=== PATIENT | female | born 1995 | race Two or more races ===

== ENCOUNTER 2017-08-08 08:43 | Inpatient (IN) | payer OTHER ==
[2017-08-08 09:40] LABS: Urine Bilirubin Negative (Negative); Urine Glucose Negative (Negative); Urine Nitrite Negative (Negative)
[2017-08-08 09:51] LABS: Hematocrit 38 % (35-47); Hemoglobin 12.8 g/dl (12.0-16.0); Mean Corpuscular HGB Conc 34 g/dl (31-36); Mean Corpuscular Hemoglobin 28 pg (27-31); Mean Corpuscular Volume 83 fL (80-97); Mean Platelet Volume 9 um3 (7.4-10.4); Red Blood Count 4.53 10^6/ul (4.0-5.4); Red Cell Distribution Width 13 % (10.5-15); White Blood Count 8.9 10^3/ul (3.5-10.8)
[2017-08-08 09:57] LABS: Benzodiazepine Urine Screen None Detected (None Detect)
[2017-08-08 10:08] LABS: ALT 9 U/L (7-52); AST 14 U/L (13-39); Albumin 4.1 g/dL (3.2-5.2); Alkaline Phosphatase 44 U/L (34-104); Anion Gap 7 mmol/L (2-11); BUN/Creatinine Ratio 10.3 (8-20); Blood Urea Nitrogen 7 mg/dL (6-24); CO2 Carbon Dioxide 25 mmol/L (22-32); Calcium 9.5 mg/dL (8.6-10.3); Chloride 107 mmol/L (101-111); EGFR African American 140.5 (>60); EGFR Non-African American 109.2 (>60); Globulin 2.6 g/dL (2-4); Glucose 98 mg/dL (70-100); Potassium 3.7 mmol/L (3.5-5.0); Sodium 139 mmol/L (133-145); Total Protein 6.7 g/dL (6.4-8.9)
[2017-08-08 10:41] LABS: Acetaminophen < 15 mcg/mL; Alcohol < 10 mg/dL (<10); Salicylate < 2.50 mg/dL (<30)
[2017-08-08] MEDS ORDERED: Al Hydrox/Mg Hydrox/Simet LIQ* 30 ML UDC PO PRN (12:31)
[2017-08-08] MEDS ORDERED: Acetaminophen TAB* 325 MG PO PRN (12:31)
[2017-08-08] MEDS ORDERED: LORazepam TAB(*) 1 MG PO PRN (12:32)
--- NOTE | 2017-08-08 19:02 | ED ---
Mathew Ott Angela, scribed for Paulo Jimenes MD on 08/08/17 at 0917 . Psychiatric Complaint - HPI Summary HPI Summary: This pt is a 21 y/o female presenting to [facility] c/o nausea, anxiety, and SI x1 week. Pt reports she is under a lot of stress. She is in her first year of college. Pt notes she is currently on fall break and has not had class since 5 days ago, which has made her anxiety worse. Pt states that she has had decreased appetite and has lost weight. She reports it is hard to concentrate and cries frequently. Pt additionally states having constipation for the last few days but today she has had diarrhea. Pt denies HI. Pt saw a counselor at [facility] and was told the psychiatrist does not have an opening until August. She has seen a counselor before in [facility] but was not diagnosed with clinical depression. Upon waking up today, the pt notes she felt very anxious and scared so she called her psychiatrist in [facility]. She was told to come to the ED for an emergency visit. Pt denies tobacco, drug, and alcohol use. - History Of Current Complaint Chief Complaint: EDMentalHealth Time Seen by Provider: 08/08/17 09:01 Hx Obtained From: Patient Onset/Duration: Lasting Days Timing: Days Character: Depressed, Fearful, Anxious Aggravating Factor(s): Recent Stress Alleviating Factor(s): Nothing Has Suicidal: Reports: Thoughts Has Homicidal: Denies: Thoughts, With A Plan - Allergies/Home Medications Allergies/Adverse Reactions: Allergies Allergy/AdvReac Type Severity Reaction Status Date / Time No Known Allergies Allergy Verified 08/08/17 08:51 Home Medications: Home Medications NK [No Home Medications Reported] 08/08/17 [History Confirmed 08/08/17] PMH/Surg Hx/FS Hx/Imm Hx Endocrine/Hematology History: Denies: Hx Diabetes Cardiovascular History: Denies: Hx Hypertension Infectious Disease History: No Infectious Disease History: Denies: Traveled Outside the [place] in Last 30 Days - Family History Known Family History: Negative: Cardiac Disease, Hypertension, Diabetes - Social History Occupation: Student - [employer] Alcohol Use: None Hx Substance Use: No Substance Use Type: Reports: None Hx Tobacco Use: No Smoking Status (MU): Never Smoked Tobacco Review of Systems Positive: Other - decreased appetite, losing weight. Negative: Fever, Chills Eyes: Negative ENT: Negative Positive: Diarrhea, Nausea, Other - constipation, now resolved. Negative: Vomiting Skin: Negative Psychological: Other - SI, unable to concentrate Positive: Anxious. Negative: Other - HI All Other Systems Reviewed And Are Negative: Yes Physical Exam - Summary Physical Exam Summary: VITAL SIGNS: Reviewed. GENERAL: Patient is a well-developed and nourished female who is lying comfortable in the stretcher. Patient is not in any acute respiratory distress. HEAD AND FACE: No signs of trauma. No ecchymosis, hematomas or skull depressions. No sinus tenderness. EYES: PERRLA, EOMI x 2, No injected conjunctiva, no nystagmus. EARS: Hearing grossly intact. Ear canals and tympanic membranes are within normal limits. MOUTH: Oropharynx within normal limits. Oral mucosa is dry. NECK: Supple, trachea is midline, no adenopathy, no JVD, no carotid bruit, no c- spine tenderness, neck with full ROM. CHEST: Symmetric, no tenderness at palpation LUNGS: Clear to auscultation bilaterally. No wheezing or crackles. CVS: Regular rate and rhythm, S1 and S2 present, no murmurs or gallops appreciated. ABDOMEN: Soft, non-tender. No signs of distention. No rebound no guarding, and no masses palpated. Bowel sounds are normal. EXTREMITIES: FROM in all major joints, no edema, no cyanosis or clubbing. NEURO: Alert and oriented x 3. No acute neurological deficits. Speech is normal and follows commands. SKIN: Dry and warm PSYCH: Sad and crying. Pt seems depressed. No homicidal thoughts or plan. No signs of psychosis or pressure speech. No tangential speech. Triage Information Reviewed: Yes Vital Signs On Initial Exam: Initial Vitals Temp Pulse Resp BP Pulse Ox 98.9 F 91 16 125/82 100 08/08/17 08:48 08/08/17 08:48 08/08/17 08:48 08/08/17 08:48 08/08/17 08:48 Vital Signs Reviewed: Yes Diagnostics - Vital Signs Vital Signs Temp Pulse Resp BP Pulse Ox 08/08/17 08:48 98.9 F 91 16 125/82 100 - Laboratory Lab Results: Lab Results 08/08/17 08/08/17 08/08/17 Range/Units 09:02 09:02 09:41 WBC (3.5-10.8) 10^3/ul RBC (4.0-5.4) 10^6/ul Hgb (12.0-16.0) g/dl Hct (35-47) % MCV (80-97) fL MCH (27-31) pg MCHC (31-36) g/dl RDW (10.5-15) % Plt Count (150-450) 10^3/ul MPV (7.4-10.4) um3 Neut % (Auto) (38-83) % Lymph % (Auto) (25-47) % Gaston % (Auto) (1-9) % Eos % (Auto) (0-6) % Baso % (Auto) (0-2) % Absolute Neuts (auto) (1.5-7.7) 10^3/ul Absolute Lymphs (auto) (1.0-4.8) 10^3/ul Absolute Monos (auto) (0-0.8) 10^3/ul Absolute Eos (auto) (0-0.6) 10^3/ul Absolute Basos (auto) (0-0.2) 10^3/ul Absolute Nucleated RBC 10^3/ul Nucleated RBC % Sodium 139 (133-145) mmol/L Potassium 3.7 (3.5-5.0) mmol/L Chloride 107 (101-111) mmol/L Carbon Dioxide 25 (22-32) mmol/L Anion Gap 7 (2-11) mmol/L BUN 7 (6-24) mg/dL Creatinine 0.68 (0.51-0.95) mg/dL Est GFR ( Amer) 140.5 (>60) Est GFR (Non-Af Amer) 109.2 (>60) BUN/Creatinine Ratio 10.3 (8-20) Glucose 98 (70-100) mg/dL Calcium 9.5 (8.6-10.3) mg/dL Total Bilirubin 0.60 (0.2-1.0) mg/dL AST 14 (13-39) U/L ALT 9 (7-52) U/L Alkaline Phosphatase 44 (34-104) U/L Total Protein 6.7 (6.4-8.9) g/dL Albumin 4.1 (3.2-5.2) g/dL Globulin 2.6 (2-4) g/dL Albumin/Globulin Ratio 1.6 (1-3) TSH 1.70 (0.34-5.60) mcIU/mL Urine Color Straw Urine Appearance Clear Urine pH 8.0 (5-9) Ur Specific [place] 1.002 L (1.010-1.030) Urine Protein Negative (Negative) Urine Ketones Negative (Negative) Urine Blood Negative (Negative) Urine Nitrate Negative (Negative) Urine Bilirubin Negative (Negative) Urine Urobilinogen Negative (Negative) Ur Leukocyte Esterase Negative (Negative) Urine Glucose Negative (Negative) Salicylates < 2.50 (<30) mg/dL Urine Opiates Screen None detected (None Detect) Acetaminophen < 15 mcg/mL Ur Barbiturates Screen None detected (None Detect) Ur Phencyclidine Scrn None detected (None Detect) Ur Amphetamines Screen None detected (None Detect) U Benzodiazepines Scrn None detected (None Detect) Urine Cocaine Screen None detected (None Detect) U Cannabinoids Screen None detected (None Detect) Serum Alcohol < 10 (<10) mg/dL 08/08/17 Range/Units 09:41 WBC 8.9 (3.5-10.8) 10^3/ul RBC 4.53 (4.0-5.4) 10^6/ul Hgb 12.8 (12.0-16.0) g/dl Hct 38 (35-47) % MCV 83 (80-97) fL MCH 28 (27-31) pg MCHC 34 (31-36) g/dl RDW 13 (10.5-15) % Plt Count 315 (150-450) 10^3/ul MPV 9 (7.4-10.4) um3 Neut % (Auto) 79.8 (38-83) % Lymph % (Auto) 14.7 L (25-47) % Gaston % (Auto) 4.2 (1-9) % Eos % (Auto) 0.5 (0-6) % Baso % (Auto) 0.8 (0-2) % Absolute Neuts (auto) 7.1 (1.5-7.7) 10^3/ul Absolute Lymphs (auto) 1.3 (1.0-4.8) 10^3/ul Absolute Monos (auto) 0.4 (0-0.8) 10^3/ul Absolute Eos (auto) 0 (0-0.6) 10^3/ul Absolute Basos (auto) 0.1 (0-0.2) 10^3/ul Absolute Nucleated RBC 0 10^3/ul Nucleated RBC % 0 Sodium (133-145) mmol/L Potassium (3.5-5.0) mmol/L Chloride (101-111) mmol/L Carbon Dioxide (22-32) mmol/L Anion Gap (2-11) mmol/L BUN (6-24) mg/dL Creatinine (0.51-0.95) mg/dL Est GFR ( Amer) (>60) Est GFR (Non-Af Amer) (>60) BUN/Creatinine Ratio (8-20) Glucose (70-100) mg/dL Calcium (8.6-10.3) mg/dL Total Bilirubin (0.2-1.0) mg/dL AST (13-39) U/L ALT (7-52) U/L Alkaline Phosphatase (34-104) U/L Total Protein (6.4-8.9) g/dL Albumin (3.2-5.2) g/dL Globulin (2-4) g/dL Albumin/Globulin Ratio (1-3) TSH (0.34-5.60) mcIU/mL Urine Color Urine Appearance Urine pH (5-9) Ur Specific [place] (1.010-1.030) Urine Protein (Negative) Urine Ketones (Negative) Urine Blood (Negative) Urine Nitrate (Negative) Urine Bilirubin (Negative) Urine Urobilinogen (Negative) Ur Leukocyte Esterase (Negative) Urine Glucose (Negative) Salicylates (<30) mg/dL Urine Opiates Screen (None Detect) Acetaminophen mcg/mL Ur Barbiturates Screen (None Detect) Ur Phencyclidine Scrn (None Detect) Ur Amphetamines Screen (None Detect) U Benzodiazepines Scrn (None Detect) Urine Cocaine Screen (None Detect) U Cannabinoids Screen (None Detect) Serum Alcohol (<10) mg/dL Result Diagrams: 08/08/17 09:41 08/08/17 09:41 Lab Statement: Any lab studies that have been ordered have been reviewed, and results considered in the medical decision making process. Course/Dx - Course Assessment/Plan: This pt is a 21 y/o female presenting to [facility] c/o nausea, anxiety, and SI x1 week. Pt reports she is under a lot of stress. She is in her first year of college. Pt notes she is currently on fall break and has not had class since 5 days ago, which has made her anxiety worse. Pt states that she has had decreased appetite and has lost weight. She reports it is hard to concentrate and cries frequently. Pt additionally states having constipation for the last few days but today she has had diarrhea. Pt denies HI. Pt saw a counselor at [facility] and was told the psychiatrist does not have an opening until August. She has seen a counselor before in [facility] but was not diagnosed with clinical depression. Upon waking up today, the pt notes she felt very anxious and scared so she called her psychiatrist in [facility]. She was told to come to the ED for an emergency visit. Pt denies tobacco, drug, and alcohol use. Test results without any signficant abnormalities. Pt is medically cleared at 10:23 for MHE. Pt is awaiting MHE. Pt will be admitted to Dr. Ng with diagnosis of depression, unspecified. - Differential Dx/Clinical Impression Differential Diagnosis/HQI/PQRI: Positive: Anxiety, Depression, Suicidal Ideation Provider Diagnosis: Depression, unspecified Discharge - Discharge Plan Condition: Stable Disposition: ADMITTED TO [facility] The documentation as recorded by the Mathew ling Angela accurately reflects the service I personally performed and the decisions made by me, Paulo Jimenes MD.
[2017-08-09 07:38] VITALS: BP 114/66
--- NOTE | 2017-08-09 14:16 | PN ---
MHU: Group Therapy Note - Service Type Service Type: 16201 Group Psychotherapy - Cognitive Behavioral Group Therapy ( CBT):Patient was attentive and participatory in CBT programming this morning, and remained in good behavioral control. Patient expressed positive insights regarding relevant treatment interventions and goals.
--- NOTE | 2017-08-09 17:23 | HP ---
DATE OF ADMISSION: 08/08/2017. JUSTIFICATION FOR ADMISSION: The patient is in need of 24 hour supervision and care secondary to suicidal ideations. 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 The patient did her undergraduate schooling in [place] and has recently arrived in [place] to participate in law school. She states that she is having a great deal of difficulty adjusting to the new culture here, especially the food and the aspects of missing her family and boyfriend who remain in [place]. She states that she has been having difficulty completing her school work and tends to be obsessional about this and the thought of failure is unacceptable to her. She indicates that she was desperate to find relief and admits to having thoughts flashing through her mind that there were bridges in her vicinity in which she could jump into the [place]. She admits that she was feeling "frozen and hopeless" with anxiety. She stated at time she would consider returning to [place], but would feel like a failure and states that this would only result in her committing suicide back in [place]. She presented as depressed, tearful, crying with a constricted affect. She has not been taking any medications up until this point. By the time I evaluated her, she was still feeling anxiety, but no longer feeling suffocated and feeling much more hopeful. She does indicate that prior to calling the police herself, she was feeling overwhelmed. She is admitting to me that she is struggling with her studies so far here at [employer], but thinks that she can rally with some support of peers and faculty at school. She is denying suicidal ideations. She also indicates that her roommate, which is her main local support, was away on a vacation to [place], but has since returned and she is feeling like it would be most restorative to return home to that setting so that she can eat Niuean food. Her symptoms tend to be nauseous anxiety with edginess, crying spells, and muscle aches. She is stating at this time that she wants to live so that she can continue her studies. She knows that if she were to complete suicide, it would be devastating to her family and she is quite close with them and this has a preventive and protective benefit. She denies neurovegetative symptoms of depression, but most of her anxiety is related to her adjustment to a new culture. 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 Once she arrived in [place], however, she started having increased anxiety and so she saw a therapist for an intake appointment on the 03 of August and then again on the 06 of August. At that time, they felt that a medication trial for anxiety would be helpful and so she was referred to a psychiatrist, but the appointment was not until the 25 of September. PAST MEDICAL HISTORY: Noncontributory. MEDICATIONS: She is on no current medications. ALLERGIES: She has no known drug allergies. FAMILY HISTORY: Significant for a brother with anxiety problems who has taken medicine for this in the past. SUBSTANCE ABUSE HISTORY: The patient does drink alcohol socially, but she denies illicit substance abuse or tobacco abuse. SOCIAL HISTORY: The patient was born and raise in [place] and her parents are still together. She does have a 27-year-old brother. She came to the [place] in May on a visa to study law at [employer]. Her undergraduate schooling was in [employer] back in [place]. She does have a boyfriend of several years who is quite supportive. She has never been . Never had children. She is not alevism, nor spiritual. She is not currently sexually active. She has no history of legal problems or violence towards others and no history of abuse or neglect. REVIEW OF SYSTEMS: The patient denies headache or double vision. She denies cough, sore throat, chest pain, difficulty breathing. She denies abdominal pain , but does indicate that she has nausea and decreased appetite secondary to anxiety. She denies difficulty ambulating, rashes, enlarged lymph nodes or fevers. PHYSICAL EXAMINATION VITAL SIGNS: Blood pressure 114/66, heart rate 79, respiratory rate 16, temperature 99.3 degrees Fahrenheit, oxygen saturations 100 percent on room air. HEENT: Head is normocephalic, atraumatic. NECK: Supple. CHEST: Clear to auscultation bilaterally. CARDIAC: Reveals normal heart sounds. ABDOMEN: Soft and nontender. MUSCULOSKELETAL: Exam reveals no sign of edema. SKIN: Warm and dry. NEUROLOGIC: She is grossly intact with no focal deficits. LABORATORY DATA: CBC is within normal limits as is her complete metabolic panel. TSH normal at 1.70. Urinalysis negative. Urine drug screen negative for all substances tests. MENTAL STATUS EXAM: The patient is a petite, short, [place] female with long dark hair who is wearing a blue T-shirt and jeans. She is calm, cooperative, expressive, makes good eye contact, is easy to establish a rapport with her. Mood is anxious with a corresponding anxious affect. Thought process is linear and goal directed. Thought content is significant for her desire to be discharged from the hospital. She denies suicidal or homicidal ideations currently. She denies auditory or visual hallucinations. Insight and judgment are fair given her willingness to follow-up with outpatient mental health treatment at [employer]. Cognitively, she is awake and alert with what would appear to be an average intellect. DIAGNOSES: AXIS I: Adjustment disorder with anxiety. AXIS II: Deferred. AXIS III: None. AXIS IV: Severe, academic and social environmental stressors. AXIS V: Currently is 50. ASSESSMENT: The patient is a 21-year-old, [place] female who is a freshman law school student at [employer] who was brought in by campus police after she called 911 reporting some suicidal ideations. The patient has been overwhelmed since her move to the [facility], largely for cultural reasons, but also because of academic stressors and missing her family and boyfriend. However, she does have support from her roommate who has just returned from vacation. The roommate is willing to come and pick her up and provide supervision and care as the patient starts medication and follows up with campus mental health services. I do think a trial of Citalopram 20 mg p.o. daily is warranted given the level of the patient's anxiety. In the meantime, she can also take prn Ativan 1 mg every six hours on an as needed basis for breakthrough anxiety, which she has already benefited from on our unit. The patient has numerous protective factors when it comes to suicide prevention, namely her knowledge of the effect this would have on her family and her desire to get well and to use the supports that are available through [employer]. She is seth for safety at this time and feels like going home and being with friends and her supports would be more restorative. PLAN: The patient is admitted to the Adult Behavioral Health Unit where she is placed on q.15 minute checks for her own safety. I do not believe that she would benefit from any further hospitalization, but we will try to certainly get her faster follow-up with a psychiatrist on the outpatient basis. I prescribed her both Celexa and prn Lorazepam that can be used conservatively in the outpatient setting along with psychotherapy and support academically. [id number]/[facility] #: [id number] MITALI
--- NOTE | 2017-08-10 01:36 | DS ---
DISCHARGE SUMMARY: DATE OF ADMISSION: 08/08/17 DATE OF DISCHARGE: 08/09/17 DISCHARGE DIAGNOSES: Norwell I: Adjustment disorder with anxiety. Norwell II: Deferred. Norwell III: None. Norwell IV: Severe academic and social environmental stressors. Norwell V: At the time of admission was 50 and at the time of discharge is 55. CONDITION AT THE TIME OF DISCHARGE: Stable. The patient is denying further suicidal ideations. She is far less anxious than she was and she is indicating that she wants to be with friends and in the familiar setting. She has spoken with her family and her boyfriend back in [place] and they are supportive of discharge. The patient already has a therapist at [facility]; however, we are making her a more rapid intake appointment with one of the psychiatrists through that clinic. The patient is agreeable with med management. She has already benefited from low dose lorazepam to reduce her anxiety and she is feeling more hopeful about the future. She has been safe on all checks, very calm, cooperative, gives multiple protective factors including her significant love for her family who she states would be devastated if she lost her life. The patient is resourceful and sees no barriers to receiving further care in the outpatient setting. MENTAL STATUS EXAM: The patient is a young petite female, who is clean and well groomed wearing a blue T-shirt and blue jeans. She is calm, cooperative, easy to establish a rapport with and speech has a normal rate and tone and volume. Mood is anxious with corresponding anxious affect. Thought process is linear and goal directed. Thought content is significant for her desire to leave the hospital. She denies suicidal or homicidal ideation. She denies auditory or visual hallucinations. Insight and judgement are fair given her willingness to follow up with outpatient treatment in the community. Cognitively, she is awake and alert with what would appear to be an average intellect. DISCHARGE INSTRUCTIONS: A. Medications: She is taking citalopram 20 mg p.o. daily, lorazepam 1 mg every 6 hours as a p.r.n. for anxiety. B. Diet is regular. C. Activity is as tolerated. The patient is a nonsmoker. There are no laboratory or diagnostic studies pending at the time of discharge. D. Followup care. The patient will follow up at the [facility], where she already has a therapist and will be seeing a psychiatrist for further med management. HOSPITAL COURSE: Part A: The patient is a 21-year-old female, who is a freshman law student at [employer] who arrived after calling 911, complaining about suicidal ideations with some intrusive thoughts of jumping off a bridge into one of the gorges. The patient has had a difficult time adjusting to the [place] culture after moving to this country in May of this year. She is having some academic stressors as well, and identifies herself as a perfectionist and someone who is fairly obsessive about school work. She does complain of multiple symptoms of anxiety including nausea, edginess, crying spells, and muscle aches. On the day prior to admission, she had been going to different locations trying to find relief and a place where she could be less anxious. She was notably anxious about the fact that her roommate, who is her main support in the area was on vacation in [place] and she felt alone and stuck inside her head. At the time that she called 911, she was not at imminent risk of suicide but states rather that it had popped into her mind in a way that really startled her and made her know that she should come seek help. She was willing to come receive an evaluation at that time. Part B. Psychiatric treatment rendered: The patient was admitted to the Adult Behavioral Health Unit where she was placed on q.15 minute checks for her own safety. She was calm and cooperative and safe on all checks. The patient was treated with low dose lorazepam for breakthrough anxiety, which she appeared to benefit from greatly. She was amenable to a trial of citalopram and we discussed the risks, benefits and alternatives. She has been in close communication with her boyfriend and her family back in [facility] and also with her roommate, who has returned to the area from a recent vacation and who is willing to come and pick her up and provide further support in the community. The patient does not feel that further involuntary treatment would be to her benefit, but rather states that it would be more restorative for her to return to her home in the community so that she could work on her school work and be amongst friends and people that she trusts. She denies any thoughts of self- harm and states that she would never hurt her family in this way. At this time , we feel that she is quite able to receive ongoing treatment in a less restrictive setting. [id number]/[facility] #: [id number] MITALI
== END 2017-08-09 17:30 | disposition home or self-care (01) | DRG 882 ==
LOC: ED 08:43 → BSU 13:36
PROVIDERS: ADMIT Psychiatry & Neurology Psychiatry; ATTEND Psychiatry & Neurology Psychiatry
PROC: GZHZZZZ Group Psychotherapy (ICD-10-PCS; principal; 2017-08-09)
DX: F43.22 Adjustment disorder with anxiety (principal); R45.851 Suicidal ideations; F32.9 Major depressive disorder, single episode, unspecified; Z81.8 Family history of other mental and behavioral disorders
CPT/HCPCS: 36415; 80053; 80307; 80320; 80329; 81003; 84443; 85025; 99238; A9270-GY; G0480